=== PATIENT | female | born 1935 | race Caucasian/White ===

== ENCOUNTER 2017-05-28 18:04 | Emergency (ER) | payer MEDICARE | END 2017-05-28 19:10 | disposition left against medical advice (07) | LOC: UCCORT 18:04 | DX: M79.644 Pain in right finger(s) (principal) ==

== ENCOUNTER 2019-12-31 16:14 | Emergency (ER) | payer MEDICARE ==
[2019-12-31 17:36] VITALS: BP 128/89
[2019-12-31] MEDS ORDERED: DOXYcycline CAP(*) 100 MG PO ONE (17:44)
--- NOTE | 2019-12-31 17:51 | UC ---
Respiratory Complaint HPI - HPI Summary HPI Summary: C/O fever x 7 days with cough that is worse lying down. Maxillary sinus pressure. No SOB, just tightness in the chest. - History of Current Complaint Chief Complaint: UCGeneralIllness Stated Complaint: COUGH/CONGESTION/EARS Hx Obtained From: Patient Onset/Duration: Gradual Onset, Lasting Days - 7 Timing: Constant Severity Initially: Mild Severity Currently: Moderate Pain Intensity: 0 Character: Cough: Nonproductive Aggravating Factors: Deep Breaths, Recumbent Position Alleviating Factors: Nothing Associated Signs And Symptoms: Positive: Fever, Chills, URI, Nasal Congestion, Sinus Discomfort - Allergies/Home Medications Allergies/Adverse Reactions: Allergies Allergy/AdvReac Type Severity Reaction Status Date / Time ibuprofen Allergy GI Upset Verified 12/31/19 17:27 Penicillins Allergy Hives Verified 12/31/19 17:27 Home Medications: Home Medications Albuterol Sulfate [Proventil Hfa] 2 puff INH Q4H PRN 12/31/19 [History Confirmed 12/31/19] Josiah/D3/Mag11/Zinc/Carroting Machine Offbearer/Paul/Bor [Caltrate 600+D Plus Tablet] 1 tab PO DAILY 12/30 [History Confirmed 12/31/19] DOXYcycline CAP(*) [DOXYcycline 100MG CAP(*)] 100 mg PO BID #20 cap 12/31/19 [Rx ] LORazepam [Ativan 0.5 MG TAB] 0.5 mg PO Q8H PRN 12/31/19 [History Confirmed ] Levothyroxine TAB* [Synthroid TAB*] 50 mcg PO QAM 12/31/19 [History Confirmed ] Lisinopril TAB* [Prinivil TAB 10 MG*] 10 mg PO DAILY 12/31/19 [History Confirmed 12/31/19] Pantoprazole TAB * [Protonix TAB*] 40 mg PO BID 12/31/19 [History Confirmed ] metFORMIN* [Glucophage 500 MG TAB *] 500 mg PO DAILY 12/31/19 [History Confirmed 12/31/19] predniSONE 20 mg TAB [Deltasone 20 MG TAB*] 60 mg PO DAILY #18 tab 12/31/19 [Rx] PMH/Surg Hx/FS Hx/Imm Hx Endocrine History: Diabetes, Hypothyroidism GI/ History: Gastroesophageal Reflux Psychological History: Anxiety - Surgical History Surgical History: Yes Surgery Procedure, Year, and Place: Right Mastectomy, 2010, [place]. 3/ Pancreas Removed, [place], [place] - Family History Known Family History: Negative: Diabetes - Social History Occupation: Retired Lives: Alone Alcohol Use: None Substance Use Type: None Smoking Status (MU): Never Smoked Tobacco When Did the Patient Quit Smoking/Using Tobacco: 1985 Review of Systems All Other Systems Reviewed And Are Negative: Yes Constitutional: Positive: Fever, Fatigue ENT: Positive: Sore Throat, Sinus Pain/Tenderness Respiratory: Positive: Cough Physical Exam Triage Information Reviewed: Yes Appearance: No Pain Distress, Well-Nourished, Ill-Appearing Vital Signs: Initial Vital Signs Temp 98.6 F 12/31/19 17:31 Pulse 92 12/31/19 17:31 Resp 16 12/31/19 17:31 BP 128/89 12/31/19 17:31 Pulse Ox 98 12/31/19 17:31 Vital Signs Reviewed: Yes Eyes: Positive: Conjunctiva Clear ENT: Positive: Pharynx normal, TMs normal - AD, completely obstructed by wax. , Sinus tenderness - left maxillary Neck exam: Normal Respiratory: Positive: Wheezing - Expiratory wheeze with coughing Cardiovascular Exam: Normal Musculoskeletal Exam: Normal Neurological Exam: Normal Psychological Exam: Normal Skin Exam: Normal Respiratory Course/Dx - Differential Dx/Diagnosis Differential Diagnosis/HQI/PQRI: Asthma, Lower Resp Infection, Sinusitis Provider Diagnosis: Upper respiratory infection with cough and congestion, Acute bacterial sinusitis, Bronchospasm, acute, Impacted cerumen of left ear Discharge ED - Sign-Out/Discharge Documenting (check all that apply): Patient Departure All imaging exams completed and their final reports reviewed: No Studies - Discharge Plan Condition: Stable Disposition: HOME Prescriptions: DOXYcycline CAP(*) [DOXYcycline 100MG CAP(*)] 100 mg PO BID #20 cap predniSONE 20 mg TAB [Deltasone 20 MG TAB*] 60 mg PO DAILY #18 tab Patient Education Materials: Upper Respiratory Infection (DC), Sinusitis (ED), Bronchospasm (ED), Cerumen Impaction (ED) Referrals: Marcus Siegel MD [Primary Care Provider] - - Billing Disposition and Condition Condition: STABLE Disposition: Home
== END 2019-12-31 18:41 | disposition home or self-care (01) ==
LOC: UCCORT 16:14
DX: J01.90 Acute sinusitis, unspecified (principal); B96.89 Other specified bacterial agents as the cause of diseases classified elsewhere; J06.9 Acute upper respiratory infection, unspecified; R05 Cough; H61.22 Impacted cerumen, left ear; J98.01 Acute bronchospasm; R09.81 Nasal congestion; E11.9 Type 2 diabetes mellitus without complications; E03.9 Hypothyroidism, unspecified; K21.9 Gastro-esophageal reflux disease without esophagitis; F41.9 Anxiety disorder, unspecified; Z88.0 Allergy status to penicillin; Z88.6 Allergy status to analgesic agent; Z79.899 Other long term (current) drug therapy; Z79.84 Long term (current) use of oral hypoglycemic drugs; Z79.890 Hormone replacement therapy
CPT/HCPCS: 99213; A9270-GY; G0463; J7512

== ENCOUNTER 2020-01-05 09:51 | Emergency (ER) | payer MEDICARE ==
--- NOTE | 2020-01-05 12:09 | UC ---
Respiratory Complaint HPI - HPI Summary HPI Summary: PATIENT SEEN HERE IN THE UC 5 DAYS AGO AND TREATED FOR SINUSITIS/RESP INFECTION WITH DOXYCYCLINE AND PREDNISONE. COMES IN SAYING THAT SHE HAS PERSISTENT SENSATION OF CHEST CONGESTION/BURNING, HEAD BURNING, FEET BURNING, THROAT BURNING. COUGH IS MINIMAL. NO FEVER. NO NAUSEA/VOMITING. NO RECENT TRAVEL OR KNOWN COVID 19 EXPOSURE. STATES SHE HAS BEEN TAKING HER ANTIBIOTIC AND PREDNISONE PRESCRIBED BUT HER GLUCOSE IS BEING AFFECTED. - History of Current Complaint Chief Complaint: UCGeneralIllness Stated Complaint: RECHECK EARS,EYES,CONGESTION,ST,SKIN CONCERN Time Seen by Provider: 01/05/20 11:42 Hx Obtained From: Patient Onset/Duration: Gradual Onset, Lasting Days, Still Present Timing: Constant Severity Initially: Moderate Severity Currently: Moderate Pain Intensity: 0 Pain Scale Used: 0-10 Numeric Character: Cough: Nonproductive Aggravating Factors: Nothing Alleviating Factors: Nothing Associated Signs And Symptoms: Positive: Chills, URI. Negative: Dyspnea, Fever , Wheezing - Allergies/Home Medications Allergies/Adverse Reactions: Allergies Allergy/AdvReac Type Severity Reaction Status Date / Time Penicillins Allergy Hives Verified 01/05/20 11:31 ibuprofen AdvReac GI Upset Verified 01/05/20 11:31 Home Medications: Home Medications Albuterol Sulfate [Proventil Hfa] 2 puff INH Q4H PRN 12/31/19 [History Confirmed 01/05/20] Josiah/D3/Mag11/Zinc/Warp Hanger/Paul/Bor [Caltrate 600+D Plus Tablet] 1 tab PO DAILY 12/30 [History Confirmed 01/05/20] DOXYcycline CAP(*) [DOXYcycline 100MG CAP(*)] 100 mg PO BID #20 cap 12/31/19 [ Rx Confirmed 01/05/20] LORazepam [Ativan 0.5 MG TAB] 0.5 mg PO Q8H PRN 12/31/19 [History Confirmed ] Levothyroxine TAB* [Synthroid TAB*] 50 mcg PO QAM 12/31/19 [History Confirmed ] Lisinopril TAB* [Prinivil TAB 10 MG*] 10 mg PO DAILY 12/31/19 [History Confirmed 01/05/20] Pantoprazole TAB * [Protonix TAB*] 40 mg PO BID 12/31/19 [History Confirmed ] metFORMIN* [Glucophage 500 MG TAB *] 500 mg PO DAILY 12/31/19 [History Confirmed 01/05/20] predniSONE 20 mg TAB [Deltasone 20 MG TAB*] 60 mg PO DAILY #18 tab 12/31/19 [Rx Confirmed 01/05/20] PMH/Surg Hx/FS Hx/Imm Hx Endocrine History: Diabetes Cardiovascular History: Hypertension GI/ History: Ulcer Psychological History: Anxiety - Surgical History Surgical History: Yes Surgery Procedure, Year, and Place: Right Mastectomy, 2009, [place]. 12/19 Pancreas Removed, 2000, [place] - Family History Known Family History: Negative: Diabetes - Social History Alcohol Use: None Substance Use Type: None Smoking Status (MU): Former Smoker When Did the Patient Quit Smoking/Using Tobacco: 1985 Review of Systems All Other Systems Reviewed And Are Negative: Yes Constitutional: Positive: Chills, Fatigue ENT: Positive: Sore Throat Respiratory: Positive: Cough Cardiovascular: Positive: Negative Gastrointestinal: Positive: Negative Neurological/Mental Status: Positive: Paresthesia Physical Exam Triage Information Reviewed: Yes Appearance: Well-Appearing, No Pain Distress, Well-Nourished Vital Signs Reviewed: Yes Eyes: Positive: Conjunctiva Clear ENT: Positive: Hearing grossly normal, Pharynx normal, TMs normal Neck: Positive: Supple Respiratory Exam: Normal Cardiovascular Exam: Normal Abdomen Description: Positive: Soft Musculoskeletal: Positive: No Edema Neurological: Positive: Alert Psychological: Positive: Age Appropriate Behavior Skin: Positive: Other - NO SKIN BREAKDOWN ON FEET. Negative: Rashes Diagnostics - Radiology CXR Radiology Interpretation Completed By: Radiologist Summary of Radiographic Findings: No active cardiopulmonary disease is noted. Respiratory Course/Dx - Course Course Of Treatment: CHEST X-RAY TODAY UNREMARKABLE. PATIENT GIVEN REASSURANCE THAT DOXYCYCLINE IS AN ADEQUATE CHOICE TO COVER ANY POSSIBLE BACTERIAL COMPONENT TO HER RESPIRATORY/ SINUS SYMPTOMS. SHE MAY BE FEELING SOME MALAISE HER GLUCOSE HAS BEEN ELEVATED WITH PREDNISONE. I ADVISED THAT SHE MAY STOP THIS MEDICATION AT THIS TIME SHE DOES NOT FEEL IT IS HELPING. GIVEN PATIENT'S AGE AND RESPIRATORY SYMPTOMS COVID19 SWAB OBTAINED AND SENT FOR TESTING. PATIENT IS BEING DISCHARGED HOME TO SELF-ISOLATION. APPROPRIATE COVID-19 PRECAUTIONS TAKEN DURING ENCOUNTER. - Differential Dx/Diagnosis Provider Diagnosis: Sinusitis Discharge ED - Sign-Out/Discharge Documenting (check all that apply): Patient Departure All imaging exams completed and their final reports reviewed: Yes - Discharge Plan Condition: Stable Disposition: HOME Patient Education Materials: Sinusitis (ED) Forms: COVID-19 Tested & Isolation Referrals: Marcus Siegel MD [Primary Care Provider] - Additional Instructions: CHEST X-RAY TODAY UNREMARKABLE. YOUR LUNGS ARE CLEAR ON EXAM. CONTINUE THE DOXYCYCLINE PRESCRIBED. OKAY TO CONTINUE THE PREDNISONE HOWEVER IF YOU DO NOT FEEL IT IS HELPING AND IT IS ELEVATING YOUR SUGAR YOU CAN STOP THIS MEDICATION. YOU HAVE BEEN TESTED FOR COVID19. YOU ARE BEING DISCHARGED HOME TO SELF-ISOLATION AND WE WILL FOLLOW UP WITH YOU ABOUT YOUR RESULTS IN 3-7 DAYS. CALL 911 IF YOU DEVELOP WORSENING RESPIRATORY DISTRESS, FEVER, PAIN OR ANY OTHER CONCERNING SYMPTOMS. - Billing Disposition and Condition Condition: STABLE Disposition: Home
[2020-01-05 12:53] VITALS: BP 124/84
--- NOTE | 2020-01-08 07:45 | UC ---
- Progress Note Progress Note: Your Coronavirus test was negative You do not have to continue self quarantine but recommend that you continue to social distance If symptoms have persisted or worsened recommend follow up with your PCP or return to urgent care Course/Dx - Diagnoses Provider Diagnoses: Sinusitis Discharge ED - Sign-Out/Discharge Documenting (check all that apply): Post-Discharge Follow Up All imaging exams completed and their final reports reviewed: Yes - Discharge Plan Condition: Stable Disposition: HOME Patient Education Materials: Sinusitis (ED) Forms: COVID-19 Tested & Isolation Referrals: Marcus Siegel MD [Primary Care Provider] - Additional Instructions: Your Coronavirus test was negative You do not have to continue self quarantine but recommend that you continue to social distance If symptoms have persisted or worsened recommend follow up with your PCP or return to urgent care - Billing Disposition and Condition Condition: STABLE Disposition: Home
== END 2020-01-05 13:10 | disposition home or self-care (01) ==
LOC: UCCORT 09:51
DX: J32.9 Chronic sinusitis, unspecified (principal); R05 Cough; R09.89 Other specified symptoms and signs involving the circulatory and respiratory systems; R68.83 Chills (without fever); R53.83 Other fatigue; E11.9 Type 2 diabetes mellitus without complications; Z79.84 Long term (current) use of oral hypoglycemic drugs; I10 Essential (primary) hypertension; F41.9 Anxiety disorder, unspecified; Z79.2 Long term (current) use of antibiotics; Z79.52 Long term (current) use of systemic steroids; Z79.899 Other long term (current) drug therapy; Z88.6 Allergy status to analgesic agent; Z88.0 Allergy status to penicillin; Z87.891 Personal history of nicotine dependence
CPT/HCPCS: 71046; 99211; G0463; U0002